=== PATIENT | female | born 1935 | race Caucasian/White ===

== ENCOUNTER 2016-07-25 16:00 | Inpatient (IN) | payer MEDICARE, BC ==
[~2016-07-25] VITALS: Ht 152.4 cm; Wt 69.6 kg
--- NOTE | ~2016-07-25 | ECHO ---
Transthoracic Echocardiography Report (TTE) Demographics Patient Name AGAPITO BRADFORD Date of Study 07/28/2016 Patient Number [id number] Visit Number [id number] Date of 1935 Room Number G6223 Gender Female Number Age 81 year(s) Referring Pablo Chavez Chemical Dependency Attendant Ramsey Adamson RD, Physician Ricardo Chanel RVT Physician Interpreting Alida Trujillo Candy Waffle Assembler Physician A Supervising Ordering Ricardo Chanel MD/MLP Physician Nurse Stress Clock Maker Conclusions Contractility Score Summary At rest the following contractility abnormalities were noted: Hypokinesis of the Mid anterior, the Mid infero-septal, the Mid inferior, the Mid infero-lateral, the Basal infero-lateral, the Apical inferior, the Apical lateral, the Apical anterior, the Basal anterior and the Apical cap segments; Akinesis of the Basal infero-septal and the Basal inferior segments; Dyskinesis of the Mid carmen-septal, the Apical septal and the Basal carmen-septal segments. Contractility of all other segments appeared normal. Summary The estimated left ventricular ejection fraction is 35-40%. Mild to moderate concentric left ventricular hypertrophy. Diastolic function indeterminate due to patient's arrhythmia. Mildly reduced right ventricular function. Mild to moderate mitral regurgitation by color Doppler. Mild mitral annular calcification. Mild tricuspid regurgitation by color Doppler. There is mild pulmonary hypertension. The pulmonary pressure (RVSP) is 35.88 mmHg. Procedure Type of Study TTE procedure:2D Echocardiogram. Procedure Date Date: 07/28/2016 Start: 09:39 AM Study Location: Inpatient Portable Technical Quality: Adequate visualization Indications:CVA. Appropriate Use Criteria: 9 Patient Status: Routine HR: 69 bpm BP: 165/89 mmHg M-Mode/2D Measurements LV Diastolic Dimension: 4.81 cm LV Systolic Dimension: 3.18 cm LV Septum Diastolic: 1.36 cm LV PW Diastolic: 1.18 cm AO Root Dimension: 3.6 cm Cardiac Output: 2.56 l/min AV Cusp Separation: 1.8 cm RV Diastolic Dimension: 3.49 cm LA volume: 95 ml LVOT: 1.9 cm RV Base: 3.62 cm LVOT VTI: 13.1 cm RV Mid: 2.38 cm LV Stroke volume: 37.12 ml TAPSE: 1.08 cm TDI-S': 9.87 cm/s Doppler Measurements AV Peak Velocity: 1.15 m/s MV Peak E-Wave: 1 m/s AV Peak Gradient: 5.29 mmHg AV Mean Gradient: 4 mmHg MV P1/2t: 67 msec LVOT Peak Velocity: 0.78 m/s TR Velocity:2.64 m/s PV Peak Velocity: 0.82 m/s TR Gradient:27.88 mmHg PV Peak Gradient: 2.69 mmHg Estimated RAP:8 mmHg Estimated PASP: 35.88 mmHg Estimated RVSP: 36 mmHg E' Septal Velocity: 0.05 m/s E' Lateral Velocity: 0.1 m/s Findings Left Ventricle Mild to moderate concentric left ventricular hypertrophy. Diastolic function indeterminate due to patient's arrhythmia. Right Ventricle Mildly reduced right ventricular function. Left Atrium The left atrium is severely dilated by LA volume index measurement. Right Atrium The right atrium is mildly dilated. IVC measures 2.04 cm with inspiratory collapse. Negative bubble study. Mitral Valve Mild to moderate mitral regurgitation by color Doppler. Mild mitral annular calcification. Aortic Valve The aortic valve is moderately sclerotic. Tricuspid Valve Mild tricuspid regurgitation by color Doppler. There is mild pulmonary hypertension. The pulmonary pressure (RVSP) is 35.88 mmHg. Pulmonic Valve Normal pulmonic valve structure and function. Pericardial Effusion No evidence of pericardial effusion. Miscellaneous The ascending aorta appears moderately dilated. The maximum diameter measures 3.8 cm. The aortic root appears mildly dilated. The maximum diameter measures 3.6 cm. Pleural Effusion No evidence of pleural effusion. Contractility Score LV regional wall motion:(0-Non visualized 1-Normal 2-Hypokinesis 3-Akinesis 4-Dyskinesis 5-Aneurysm) Signature dtt: Josselin Irwin dtd: 07/28/16 0939 Physician Self Edit
--- NOTE | ~2016-07-25 | HP ---
PATIENT'S NAME: AGAPITO BRADFORD [facility] AGE: 81 Y [address] ROOM: [place] [address] LOCATION: [facility] ADMIT DATE: 07/25/2016 History & Physical DISCHARGE DATE: FAMILY PHYSICIAN: Brayan Hernandez MD ATTENDING PHYSICIAN: Yanique SANDHU DATE OF SERVICE: CHIEF COMPLAINT: CVA. 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 The patient reports that around 11 a.m. this morning, she noticed her speech was slurred while talking over the phone. The patient was taken to the emergency department. Slurred speech improved, however, the patient was continued to have left facial droop. CT image was done, which showed some old strokes and possible new stroke. The patient was sent to our hospital for further workup. The patient reports that she has had multiple strokes in the past, and reports that the last one was found on eye examination. The patient currently denies chest pain, vision change, nausea, vomiting, gait instability, abdominal pain, fever, chills, headache, and extremity motor decrease. The patient lives by herself and is active with her activity of daily life. Daughter reports that the patient has mild of dementia, and most of her finances are run by her daughter. MEDICAL HISTORY: 1. GERD. 2. Hypertension. 3. Chronic atrial fibrillation. 4. Chronic back pain. 5. Diabetes mellitus type 2. 6. Hyperlipidemia. 7. Multiple CVA. SURGICAL HISTORY: 1. Kyphoplasty. 2. CABG. 3. Cataract. 4. Coronary angiogram. PATIENT'S NAME: AGAPITO BRADFORD [facility] AGE: 81 Y [address] ROOM: [place] [address] LOCATION: [facility] ADMIT DATE: 07/25/2016 History & Physical DISCHARGE DATE: FAMILY PHYSICIAN: Brayan Hernandez MD ATTENDING PHYSICIAN: Yanique SANDHU FAMILY HISTORY: Several of her brother had cardiac disease and have from cardiac disease complication. SOCIAL HISTORY: Distant smoking history. Last smoked 35 years ago. Denies drinking. Lives by herself with her cats. MEDICATIONS: Please see MAR. REVIEW OF SYSTEMS: All systems have been reviewed and are negative except for what is mentioned in the HPI. PHYSICAL EXAMINATION: VITAL SIGNS: Blood pressure of 179/109, temperature of 98.4, heart rate of 78, respiratory rate of 16. GENERAL APPEARANCE: The patient is alert and oriented x3, in no acute distress. HEAD: Normocephalic, atraumatic. EYES: Extraocular muscle intact. Sclerae nonicteric. NOSE: No nasal discharge. EARS: No ear discharge. NECK: Supple. No JVD. CHEST: Clear to auscultation. HEART: Irregularly irregular. ABDOMEN: Soft, nontender, and nondistended. Bowel sounds present. LOWER EXTREMITIES: No edema. SKIN: Warm to touch. MUSCULOSKELETAL: The patient exhibits scoliosis and some kyphosis in the back. BACK SHOE CUTTER: The patient is alert and oriented x3. Motor and sensory grossly intact. The patient exhibits mild left nasolabial flattening. LABORATORY DATA: Labs taken at [facility], this is today's labs. Hemoglobin of 12.5, hematocrit of 37.7, platelet of 269. White blood cell count of 8, sodium of 139, potassium of 4.2, creatinine of 1.1, glucose of 155, and BUN of 16. ASSESSMENT AND PLAN: The patient is an 81-year-old female with past medical history of multiple CVA, coronary artery disease, status post CABG, and diabetes mellitus, who presents here with CVA. PATIENT'S NAME: AGAPITO BRADFORD [facility] AGE: 81 Y [address] ROOM: [place] [address] LOCATION: [facility] ADMIT DATE: 07/25/2016 History & Physical DISCHARGE DATE: FAMILY PHYSICIAN: Brayan Hernandez MD ATTENDING PHYSICIAN: Yanique SANDHU 1. CVA: Initial NIH score of 2, currently NIH score of 1. The patient when seen at [facility] was not a candidate for tPA due to unknown time of presentation and current use of Pradaxa. CT head done at [facility] shows prior stroke and possible new stroke. We will acquire MRA of the head. 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 We will change medication simvastatin to high-dose Lipitor 80 mg. We will continue aspirin. We will hold Pradaxa due to fear of hemorrhagic conversion. We will allow permissive hypertension and put a p.r.n. of labetalol for systolic blood pressure greater than 220 and diastolic blood pressure greater than 110. Serial neuro check and PT and OT. 2. Diabetes mellitus, stable. Continue home medication. We will add low- dose SSI. 3. Coronary artery disease, status post CABG. Continue aspirin. We will change simvastatin to Lipitor, holding beta jen due to permissive hypertension. 4. Hyperlipidemia, on Lipitor. 5. Chronic atrial fibrillation. Holding Pradaxa for possible hemorrhagic conversion. 6. Gastroesophageal reflux disease, on Protonix. 7. Hypertension. Allowing permissive hypertension. See initial problem. 8. Diabetic neuropathy. Continue home medication. I have personally reviewed the patient's medical record including but not limited to blood work and radiology report. Total time spent with the patient is greater than 70 minutes, more than 50% time is spent in direct patient care and patient consultation. Case was reviewed with the patient, nursing staff, and Neurology. Neurology consulted on the case. On admission, the patient's code status is DNR/DNI. MD DAVID LOYOLA/modl /[id number]: [id number] T: [id number] HISTORY & PHYSICAL
--- NOTE | ~2016-07-25 | CON ---
PATIENT'S NAME: AGAPITO BRADFORD [facility] AGE: 81 Y [address] ROOM: [address] [address] LOCATION: [facility] ADMIT DATE: 07/25/2016 Consultation DISCHARGE DATE: FAMILY PHYSICIAN: Brayan Hernandez MD ATTENDING PHYSICIAN: Yanique SANDHU DATE OF CONSULTATION: 07/25/2016 The patient was seen on neurologic consultation at 7:00 p.m. on 07/25/2016. HISTORY OF PRESENT ILLNESS: This is an 81-year-old female, who has a history of chronic atrial fibrillation, on Pradaxa 150 mg tablet twice a day. She also has a history of coronary artery disease x2 procedures back in 1999 and in 2000 with revision. The patient states that she was in her usual state of health when she was talking to her daughter on the telephone and suddenly she was having difficulty getting the words out and her words were containing confused syntax. The daughter whom she was talking to called another daughter who lives locally in [place] and came over to see her mom immediately. However, she was sent by the patient's chairman and ceo to the emergency room where they evaluated the patient. By the time into the course of around 45 minutes to 1 hour, her slurred speech and word-finding difficulty had completely resolved. Her blood pressure at the hospital was noted to be somewhere in the range of over 200 systolic with the diastolic blood pressure around 110. She continues to maintain blood pressure readings into the 180 to 190 systolic range and diastolic range of around 102 to 109. The patient denies any headaches. She denies any focal weakness of her limbs or clumsiness of the limbs or any sensory deficits. She denies any numbness of the face or of the extremities. She says that she is back to her baseline and there is no apparent confusion presently and there is no slurring of the speech and no facial droop was ever noted. PRIOR MEDICAL HISTORY: She has a history of coronary artery disease and also history of diabetes. CURRENT MEDICATIONS: At home include: 1. Coreg 12.5 mg tablet 1 tablet 2 times a day. 2. Lantus subcutaneous 100 units, inject 35 units subcu at bedtime. 3. Digoxin 125 mcg 1 tablet daily. 4. Singulair 10 mg tablets once daily. 5. Zocor 20 mg tablets daily. 6. Omeprazole 20 mg p.o. daily. 7. Pradaxa 150 mg tablet 2 times a day. 8. Hydralazine 25 mg tablet 1 tablet 2 times daily. PATIENT'S NAME: AGAPITO BRADFORD [facility] AGE: 81 Y [address] ROOM: [address] [place], [place] [address] LOCATION: [facility] ADMIT DATE: 07/25/2016 Consultation DISCHARGE DATE: FAMILY PHYSICIAN: Brayan Hernandez MD ATTENDING PHYSICIAN: Yanique SANDHU 9. Metformin 500 mg 2 tablets 2 times daily. 10. Fenofibrate 160 mg tablet 1 tablet daily. 11. Vitamin D 1000 units 1 tablet daily. 12. Spiriva HandiHaler inhalation 18 mcg 1 cap per inhaler every morning as a bronchodilator. 13. Centrum tablet 1 tablet daily. 14. Lisinopril 20 mg tablet daily. 15. Aspirin 81 mg daily. 16. Melatonin 3 mg tablet daily. FAMILY HISTORY: Noncontributory. There is no known history of a stroke in the family members. Her mother lived to 83 years old. Father lived to 76 years old. She has numerous siblings who lived into their 90s. SOCIAL HISTORY: She smoked briefly as a teenager. She has been for 7 years. She lives by herself. She does have 3 daughters and 1 son, 1 daughter is present today. She lives locally in [place]. PAST SURGICAL HISTORY: Included coronary artery bypass grafts done in 2000 and 2001. Current machine whitener follows her closely is Dr. Ayers, [facility] in [place]. REVIEW OF SYSTEMS: NEUROLOGICAL: The patient presented this sql server dba developer with about 45 minutes of slurring of the speech with word-finding. It resolves spontaneously. In the emergency room, she presented with diastolic hypertension as well as systolic hypertension into the low 200s. She was not confused. She did not have a facial droop or facial numbness or any weakness of the upper and lower extremities. There may have been a prior history of stroke though that is unclear. At this point, she has chronic atrial fibrillation, on Pradaxa which she takes on a daily basis. ENDOCRINE: History of diabetes and cardiac history of known chronic atrial fibrillation and coronary artery disease. She is maintained on a hyperlipidemic medication. The rest of a 10-point review of systems is within normal limits. PHYSICAL EXAMINATION: GENERAL: The patient is alert and oriented and has excellent mentation. She speaks clearly. She does not have any word substitution and no syntax errors were heard. She was able to name objects and parts of objects and perform whole body cross commands. VITAL SIGNS: Revealed a pulse of 82 and irregular, respiration rate 12, blood pressure 179/102, temperature 98.4, pulse was 78 and temperature 98.7, her PATIENT'S NAME: AGAPITO BRADFORD [facility] AGE: 81 Y [address] ROOM: [address] [place], [place] [address] LOCATION: [facility] ADMIT DATE: 07/25/2016 Consultation DISCHARGE DATE: FAMILY PHYSICIAN: Brayan Hernandez MD ATTENDING PHYSICIAN: Yanique SANDHU weight is 72 kg. NEUROLOGIC: Cranial nerves 2 through 12 was intact. I did not appreciate any facial droop. There is normal facial symmetry. NECK: Supple on flexion and extension. On checking a pronator drift, perhaps a slight pronator drift that is chronic according to the daughter. The pronator drift is subtle in the right upper extremity. I did not appreciate any drift in her right lower extremity. She has full power in the proximal and distal muscles of the upper and lower extremities with normal hand security compliance specialist. Reflexes symmetric at +1 in the biceps, triceps, brachioradialis, patellar reflexes and ankle jerk reflexes. Sensory exam is completely intact. There is no evidence of sensory neglect, 2-point discrimination is normal and right left discrimination is normal. IMPRESSION: The patient did have what appears to be a small TIA. Based upon her symptoms that lasted no more than 45 minutes, it was associated with word finding deficits and slurring of speech. The patient has been religiously taking her Pradaxa which should be successful in preventing any type of cardioembolic stroke to the left brain. We should get an MRI to confirm any evidence of DWI findings of a stroke. Even though these symptoms were fleeting if there is evidence for a stroke on the MRI, we would have to discuss with her machine whitener about an alternate anticoagulant. The patient had been on Coumadin in the distant past, but eventually went on to Pradaxa. She believes that she has been on this medication for about 2 years. There is a question as to whether she had a stroke affecting her visual field in the distant past while on this medication as well. Now it is appropriate to probably hold the Pradaxa briefly based upon the thought that she may have had a small stroke. However, we will likely reinstitute the medication. Physical exam reveals no neurologic evidence of a focal stroke thankfully due to the possibility that she may have had an acute increase in her blood pressure which may of course is confusion event. The MRI is certainly important to rule out evidence for a stroke. Her hypertension presently may be reactive hypertension to the events associated with the TIA. If the patient continues to remain stable without any signs and symptoms of a stroke, we will slowly reduce her blood pressure accordingly, however, I would recommend keeping her blood pressure just acutely elevated over the course of the evening. Continue to follow along with the Hospitalist Service on Ms. Bradford's neurologic status. MD JAYDA WASHINGTON/nahum PATIENT'S NAME: AGAPITO BRADFORD [facility] AGE: 81 Y [address] ROOM: [place] [address] LOCATION: [facility] ADMIT DATE: 07/25/2016 Consultation DISCHARGE DATE: FAMILY PHYSICIAN: Brayan Hernandez MD ATTENDING PHYSICIAN: Yanique SANDHU /[id number] d: 07/26/1647 t: 07/30/[id number], CONSULTATION REPORT
--- NOTE | ~2016-07-25 | DS ---
PATIENT'S NAME: AGAPITO BRADFORD [facility] AGE: 81 Y [address] ROOM: [address] [address] LOCATION: [facility] ADMIT DATE: 07/25/2016 Discharge Summary DISCHARGE DATE: 07/29/2016 FAMILY PHYSICIAN: Brayan Shah MD ATTENDING PHYSICIAN: Yanique SILVA FINAL DIAGNOSES: 1. Transient ischemic attack. 2. Encephalopathy. 3. Aphasia. 4. Diabetes mellitus. 5. Accelerated hypertension. 6. Gait instability. CONSULTANTS ON THE CASE: Dr. Ng, Neurology. HOSPITAL COURSE: Please see details of admission in H and P by Dr. Silva. Briefly, the patient is a pleasant 81-year-old female, who presented with acute onset of encephalopathy and aphasia. The patient was initially evaluated in [place] and sent here for further evaluation. At the time of her presentation in [place], her symptoms had resolved. CT scan done in [place] did show history of previous CVA, but no new abnormalities. The patient was sent here for further evaluation. MRI and MRA of the head and neck were ordered upon admission. Dr. Ng was consulted for neurologic evaluation. Transthoracic echo was also ordered. The patient was covered with sliding scale insulin throughout her stay with Accu-Cheks 4 times daily. Once the patient's swallow was evaluated, she was cleared to continue with her home medications as outlined. The patient's Pradaxa was held on admission, and after further evaluation, we were able to restart her Pradaxa as well as Coreg and lisinopril for antihypertensive coverage. Dr. Ng evaluated the patient on the , felt like her symptoms and history and diagnostic studies were consistent with a TIA secondary to uncontrolled blood pressure. The patient continued to have elevated pressures and hydralazine was increased to 25 mg 3 times daily. On the 1st, the patient describes some lightheadedness with change in activity as well as her elevated blood pressures. It was determined that the patient should stay another evening for further optimization. On the 2nd, the patient was feeling better. Overall, her blood pressures had dropped to an average of 140 systolically. She was ambulating in halls with a walker with adequate evaluation by PT and OT for home discharge. We did attempt for a swing bed placement, however, it was deemed that the patient would not qualify at this time. The patient and her family discussed options and felt like home with home health would be adequate. DIAGNOSTICS: Radiology exams include MRI of the brain without contrast, which was normal on 07/25/2016; MRI of the neck shows bilateral carotid stenosis in PATIENT'S NAME: AGAPITO BRADFORD [facility] AGE: 81 Y [address] ROOM: [place] [address] LOCATION: [facility] ADMIT DATE: 07/25/2016 Discharge Summary DISCHARGE DATE: 07/29/2016 FAMILY PHYSICIAN: Brayan Shah MD ATTENDING PHYSICIAN: Yanique SILVA the 16% to 49% category with some slight irregularity on the right. She had normal distal internal carotids and normal vertebral basilar system. MRI of the brain on 07/25/2016 shows wyblyehd-rf-hftsrw senescent changes with an old left occipital infarct. No acute findings and no ischemia. The patient underwent bilateral renal artery ultrasound on 07/27/2016 for elevated blood pressures and no evidence of significant renal artery stenosis was identified. She did have large cyst noted at the left kidney up to 5.9 cm. Blood sugars ranged from 109 to 327 during her stay. On admission, sodium was 140, potassium 4.1, chloride 107, bicarb 27, glucose 142, BUN 15, creatinine 1.0. Prior to discharge, sodium 141, potassium 3.8, chloride 106, bicarb 29, glucose 163, BUN 16, creatinine 1.0. Total cholesterol was 109, triglycerides 122, HDL 44, LDL 41. Hemoglobin A1C was 7.9%. On the 30, white blood cell count was 11.9, hemoglobin 12.6, hematocrit 39.3, platelets 274. Echocardiogram on 07/28/2016 shows EF of 35% to 40%. Ojkn-fn-rpmjyaln left ventricular hypertrophy, mildly reduced right ventricular function, mild-to- moderate mitral regurg, mild mitral annular calcification, mild tricuspid regurg, and mild pulmonary hypertension with a pressure of 35.88 mmHg. DISCHARGE INSTRUCTIONS: The patient is discharged home with resuming home health for residential, PT, and OT. The patient's diet is diabetic. Activity: No driving. FOLLOWUP: She will follow up with Dr. Shah on 08/04/2016 at 2:15 p.m. Follow up with Dr. Ayers or Dr. Lawrence at [facility] on 07/31/2016 at 10:15 a.m. DISCHARGE MEDICATIONS: 1. Aspirin 81 mg daily. 2. Simvastatin 20 mg daily. 3. TriCor 160 mg daily. 4. Coreg 12.5 mg twice daily. 5. Vitamin D3 1000 units daily. 6. Digoxin 125 mcg daily. 7. Colace 100 mg twice daily. 8. Hydralazine 25 mg 3 times daily. Hold if systolic blood pressure is less than 110. 9. Lantus 35 mg daily. 10. Lisinopril 20 mg daily. 11. Omeprazole 20 mg daily. 12. Tylenol 650 mg every 4 hours as needed. 13. Cinnamon 500 mg daily. 14. Melatonin 30 mg daily. 15. Multivitamin 1 tablet daily. 16. Ativan 0.5 mg 4 times daily as needed. 17. Metformin 1000 mg twice daily. PATIENT'S NAME: AGAPITO BRADFORD [facility] AGE: 81 Y [address] ROOM: [place] [address] LOCATION: [facility] ADMIT DATE: 07/25/2016 Discharge Summary DISCHARGE DATE: 07/29/2016 FAMILY PHYSICIAN: Brayan Shah MD ATTENDING PHYSICIAN: Yanique SILVA 18. Pradaxa 150 mg twice daily. We do appreciate participating in this patient's care and thank you very much for the ability to serve her while hospitalized at [facility]. Time spent coordinating details of discharge was 35 minutes, which was spent coordinating with consulting physician and Care Management, completion of medication reconciliation, and education to the patient and family on the above-mentioned diagnoses. ASYA QUIROZ FOR TANIA BOCANEGRA MD CHERYL/modl /[id number] d: 07/30/16220 t: 08/01/161930, DISCHARGE SUMMARY
[2016-07-25] MEDS ORDERED: PRILOSEC20 MG PO (18:04)
[2016-07-25] MEDS ORDERED: LANTUS SOL100 UNIT/1 SUB-Q (18:05)
[2016-07-25] MEDS ORDERED: CINNAMON500 MG (18:05)
[2016-07-25] MEDS ORDERED: COLACE100 MG PO (18:06)
[2016-07-25] MEDS ORDERED: MELATONIN3 MG PO (18:06)
[2016-07-25] MEDS ORDERED: ASPIRIN LO-DOSE81 MG PO (18:07)
[2016-07-25] MEDS ORDERED: THERAGRAN-M1 TAB PO (18:07)
[2016-07-25] MEDS ORDERED: VITAMIN D1000 UNIT PO (18:07)
[2016-07-25] MEDS ORDERED: COREG12.5 MG PO (18:08)
[2016-07-25] MEDS ORDERED: TYLENOL325 MG PO (18:08)
[2016-07-25] MEDS ORDERED: PRINIVIL (ZESTR20 MG PO (18:09)
[2016-07-25] MEDS ORDERED: LANOXIN (DIGI125 MCG PO (18:09)
--- NOTE | 2016-07-25 18:09 | NUR ---
Patient is very pleasant 81 yo female admitted this evening for possible stroke. patient lives in [place], doctors in [place]. patient was talking with her daughter on the phone this morning and her speech was slurred. pt called the hairdresser to cancel her appointment and she came to take patient to the ER in [place]. patient is then transferred here. patient has saline lock in right hand without erythema noted at site. Education is given as documented. patient and daugther deny questions. pneumatics are on bilat calves. pt rubia well. call light is within reach patient denies needs at htis time. Report is given to LEONILA Ortiz.
[2016-07-25] MEDS ORDERED: ZOCOR20 MG PO (18:10)
[2016-07-25] MEDS ORDERED: ATIVAN 0.5MG0.5 MG PO (18:10)
[2016-07-25] MEDS ORDERED: PRADAXA150 MG PO (18:11)
[2016-07-25] MEDS ORDERED: GLUCOPHAGE500 MG PO (18:11)
[2016-07-25] MEDS ORDERED: TRICOR 160 MG160 MG PO (18:11)
[2016-07-25] MEDS ORDERED: APRESOLINE25 MG PO (18:12)
--- NOTE | 2016-07-25 18:37 | NUR ---
Significant Event: Patient admitted to [facility] at 1720. a/o x 3. denies pain. does state has chronic pain to bilateral lower extremities with palpatation due to hx of vein stripping from CABG 20 years ago. also chronic numbness to feet from diabetic neuropathy. NIHSS=1 for left mouth droop. lung sounds clear. bowel sounds active. no skin integrity impairment. accucheck 113. chronic afib. IV to left hand saline locked. Dr. Silva admitting. voided 100 of urine per bedpan on admission.
--- NOTE | 2016-07-26 04:12 | NUR ---
Significant Event: Patient alert and oriented x3. Up with one assist and gaitbelt. NIHSS 1. PERRLA. Equal strength bilaterally. Chronic a.fib with rates 70s-90s. SBPs ranging from 133-179 with DBPs 78-110. On room air. Tylenol given for chronic back pain with relief. Right wrist IV saline locked. MRI done of head and neck last night and up to see patient. Pleasant and cooperative with cares Follow up:
--- NOTE | 2016-07-26 10:00 | NUR ---
CONSULT RECEIVED PER STROKE PROTOCOL. WILL PROVIDE DIET ED PRIOR TO DC APPROPRIATE.
--- NOTE | 2016-07-26 15:21 | NUR ---
Significant Event: Patient alert and oriented x3. Pupils 3mm, brisk. Reports chronic neuropathy to feet. NIHSS= 1, L) facial droop present. Tele on- a fib with BBB. Hypertensive, all other VSS on room air. Voids per bathroom. BM today. Reports of chronic back pain, tylenol given. No changes in patient condition throughout shift. IV to R) wrist, saline locked. Follow up: VS/neuros q 4 hours. Up with 1PA. ADA diet, AC/HS accucheks.
[2016-07-27 04:40] LABS: BASOPHIL # 0.1 K/uL (0.0-0.2); BASOPHIL % 0.8 %; EOSINOPHIL # 0.5 K/uL (0.0-0.5); EOSINOPHIL % 3.8 %; HEMATOCRIT 39.3 % (30.0-46.0); HEMOGLOBIN 12.6 g/dL (10.0-15.0); IMMATURE GRANULOCYTE % 0.3 %; LYMPHOCYTE % 16.9 %; MCH 27.6 pg (27.0-34.0); MCHC 32.1 gm/dL (32.0-36.5); MONOCYTE # 1.2 K/uL (0.0-1.0); MPV 9.6 fl (9.4-12.4); NEUTROPHIL # (ANC) 8.1 K/uL (1.8-7.8); NEUTROPHIL % 68.2 %; NRBC % 0 /100WBC (0-0.00); PLATELET COUNT 274 K/uL (150-450); RBC 4.57 M/uL (3.00-5.00); RDW-CV 16.4 % (11.9-14.6); WBC 11.9 K/uL (4.0-11.0)
--- NOTE | 2016-07-27 05:04 | NUR ---
A&O. PERRLA. Left facial droop. Afib. Chronic neuopathy to feet. IV right wrist SL. 1 assist with gait belt and walker. Voids frequently. Accuchecks ACHS. ADA diet. Hopes to discharge today.
[2016-07-27 05:50] LABS: ANION GAP 10.1 (10.0-19.0); CALCIUM 8.9 mg/dL (8.5-10.5); POTASSIUM 4.1 mMol/L (3.7-5.1)
--- NOTE | 2016-07-27 14:56 | NUR ---
Significant Event: Patient alert and oriented x3. Very talkative. Pupils 3mm, brisk. Grasps moderate and equal bilaterally. Chronic neuropathy to feet. NIHSS= 0. Tele on- a fib. Very hypertensive, MD aware. Working on blood pressure control. Other VSS on room air. Voids per bathroom, urinary urgency noted. IV to R) wrist, saline locked. Tylenol given for chronic back pain. Follow up: VS/neuros q 4 hours. Up with 1PA and walker. ADA diet, AC/HS accucheks.
--- NOTE | 2016-07-28 04:17 | NUR ---
Significant Event: PATIENT IS ALERT AND ORIENTEDX3. PLEASANT. NIHSS 0. PATIENT GETS UP WITH SBA WITH WALKER TO BATHROOM MULTIPLE TIMES THROUGHOUT NIGHT. DENIES PAIN. ACHS. HYPERTENSIVE. LAST BP WAS 172/77. NEW MEDICATIONS STARTED YESTERDAY. SHE IS NERVOUS ABOUT GOING HOME BUT USES MEALS ON WHEELS AND HOME HEALTH. REPORTS NUMBNESS TO BILATERAL FEET WHICH IS CHRONIC FOR HER. A.FIB ON THE MONITOR. ROOM AIR. Follow up: PLAN TO DISCHARGE HOME TODAY.
[2016-07-28 05:56] LABS: ANION GAP 9.8 (10.0-19.0); CALCIUM 8.4 mg/dL (8.5-10.5); POTASSIUM 3.8 mMol/L (3.7-5.1)
--- NOTE | 2016-07-28 12:51 | NUR ---
Introduced self and role of care management to patient and daughter. She lives by herself in [place]. Licha states that she is able to do all her own ADL's. She does use a cane and walker at home. She has a lady that comes in to clean every week. She has been on service with [facility] thru [facility]. She just finished the PT/OT services last week. Her daughter would like the nursing services to continue. I called and updated Lissett at [facility] and faxed clinical inforamtion. Will fax discharge orders when patient ready for discharge. Patient and daughter deny any needs at this time. Swetha continue to follow.
--- NOTE | 2016-07-28 16:52 | NUR ---
Significant Event: Alert & oriented. VSS, afebrile, room air. Orthostatics positive, SBP 130-160. SBA. IV to L)fa SL. NIHSS=0. Chronic neuropathy to bilat feet. Pleasant & cooperative with cares. Uses call light appropriately. Follow up: Dischage Thursday if BP better controlled, home with home health
--- NOTE | 2016-07-29 04:17 | NUR ---
Significant Event: A&Ox3, VSS on room air. HTN, SBP: 129-155. Transfers with SBA with walker/GB to bathroom. Voids frequently, continent of bowel and bladder. Patient requested ativan given at 2250, Tylenol given X2 last at 0030 for back pain. NIHSS=0. Talkitive, pleasant, and cooperative with cares. Follow up: possible swing bed soon.
--- NOTE | 2016-07-29 12:57 | NUR ---
Called and spoke with Jaja swingbed coordinator at [facility]. We discussed patient coming for a Medicare skilled stay. I read her what were documented on the the therapy notes that patient is able to ambulate greater that 300 ft. She is not on any IV antibiotics, no complex dressing changes. Jaja feels that at this time there are no skillable qualifiers. I did update Dr Garcia and [facility]. I also updated patient and called and spoke with her daughter Nargis. I explained that we would continue the [facility] with nursing and add back in the therapies. Patient and daughter are in agreement with this plan. Will continue to follow.
== END 2016-07-29 16:33 | disposition home health service (06) | DRG 69 ==
LOC: GNTU 17:06
PROVIDERS: Internal Medicine; ADMIT Internal Medicine
DX: G45.9 Transient cerebral ischemic attack, unspecified (principal); G93.40 Encephalopathy, unspecified; I27.2 Other secondary pulmonary hypertension; E11.40 Type 2 diabetes mellitus with diabetic neuropathy, unspecified; I48.2 Chronic atrial fibrillation; I11.9 Hypertensive heart disease without heart failure; F03.90 Unspecified dementia, unspecified severity, without behavioral disturbance, psychotic disturbance, mood disturbance, and anxiety; R47.01 Aphasia; N28.1 Cyst of kidney, acquired; R26.89 Other abnormalities of gait and mobility; I34.0 Nonrheumatic mitral (valve) insufficiency; I25.10 Atherosclerotic heart disease of native coronary artery without angina pectoris; I16.0 Hypertensive urgency; E78.5 Hyperlipidemia, unspecified; K21.9 Gastro-esophageal reflux disease without esophagitis; M54.9 Dorsalgia, unspecified; Z66 Do not resuscitate; Z86.73 Personal history of transient ischemic attack (TIA), and cerebral infarction without residual deficits; Z95.1 Presence of aortocoronary bypass graft; Z79.01 Long term (current) use of anticoagulants; Z79.4 Long term (current) use of insulin; Z79.84 Long term (current) use of oral hypoglycemic drugs; Z79.899 Other long term (current) drug therapy
CPT/HCPCS: A9577; J2060

== ENCOUNTER 2016-09-01 17:00 | Observation (INO) | payer MEDICARE, BC ==
[~2016-09-01] VITALS: Ht 152.4 cm; Wt 68.7 kg
--- NOTE | ~2016-09-01 | HP ---
PATIENT'S NAME: AGAPITO BRADFORD [facility] AGE: 81 Y [address] ROOM: [place] [address] LOCATION: [facility] ADMIT DATE: 09/01/2016 History & Physical DISCHARGE DATE: FAMILY PHYSICIAN: PHYSICIAN, UNKNOWN ATTENDING PHYSICIAN: CHANCE CHOE DATE OF SERVICE: CHIEF COMPLAINT: Slurred speech. HISTORY OF PRESENT ILLNESS: This is an 81-year-old female who says that around noon time today after she had lunch she was waiting for the home health nurse to visit her to take her blood pressure. The patient lives alone. When the home health nurse arrived around 2 p.m., the patient starts started having slurred speech and left-sided facial droop. This happened around 2 p.m. Right away, the nurse took the patient to [facility] for evaluation. Over there, around 4 p.m., the patient stated that her slurred speech and left-sided facial droop had resolved. Over there, in [place], the patient had a CT of the brain without contrast, which showed no evidence of acute intracranial hemorrhage or mass effect. Also had EKG which showed chronic atrial fibrillation, not RVR. The patient already has a history of chronic atrial fibrillation in the past. The patient was later transferred here for further care from [place]. Other than that, the patient denies any other symptoms. Currently, the patient is back to her normal baseline and does not have any complaints. There is no more slurred speech. There is no more left-side facial droop. The patient has had TIA secondary to uncontrolled hypertension from the last admission based on the discharge summary that was in July 2016 and also had a prior history of left occipital stroke in the past with residual right-side visual field vision loss which is chronic. REVIEW OF SYSTEMS: As mentioned in the history of present illness. All other system were reviewed and they were negative except what is mentioned in the history of present illness. PAST MEDICAL HISTORY: 1. Diabetes type 2. 2. Hypertension. 3. TIA in the past. 4. 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 5. Gastroesophageal reflux disease. 6. Hyperlipidemia. PATIENT'S NAME: AGAPITO BRADFORD [facility] AGE: 81 Y [address] ROOM: [id number] [place], [place] [address] LOCATION: [facility] ADMIT DATE: 09/01/2016 History & Physical DISCHARGE DATE: FAMILY PHYSICIAN: PHYSICIAN, UNKNOWN ATTENDING PHYSICIAN: CHANCE CHOE 7. Chronic atrial fibrillation, on rate control and also on long-term anticoagulation. 8. Last transthoracic echo on 07/28/2016 showed left ventricular ejection fraction of 35% to 40% with tpmo-dk-sapnjuyo concentric left ventricular hypertrophy and imqy-kj-jefnbszl mitral regurgitation and mild tricuspid regurgitation with mild pulmonary hypertension of the pulmonary pressure of 35 mmHg. ALLERGIES: CODEINE WHICH CAUSES HER TO FEEL SICK IN GENERAL. HOME MEDICATIONS: Currently is being reconciled. SOCIAL HISTORY: The patient was a former cigarette smoker about 1 pack per day for 20 years, but she quit 30 years ago. She denies any alcohol or any illegal drug use. PAST SURGICAL HISTORY: 1. Status post CABG back in 1999 and 2000. 2. Status post lumbar kyphoplasty 4 times in the past. FAMILY HISTORY: Father from myocardial infarction at his 80s and mother had diabetes type 2. PHYSICAL EXAMINATION: VITAL SIGNS: At the time of my dictation, temperature 98.2, heart rate 76, respirations 16, blood pressure 176/92, saturation 94% on room air. GENERAL APPEARANCE: Alert and oriented x3, in no acute distress. HEENT: Pupils equally round and reactive to light. Extraocular muscles intact. Anicteric sclerae. Nasal turbinates are normal bilaterally. Moist oral mucosa. NECK: No JVD. CARDIOVASCULAR: Irregularly irregular rate and rhythm. No murmur, no rubs, no gallops. RESPIRATORY: Clear to auscultation. No rales. No rhonchi. No wheezing. No crackles. ABDOMEN: Soft, nontender, nondistended, normal bowel sounds. No hepatomegaly. Bowel sounds are present. No mass. EXTREMITIES: No edema in upper or lower extremities. SKIN: No ulcer, no rash, no cyanosis. NEUROLOGIC: Cranial nerves 2 through 12 remarkable for right-side visual field loss on the right eye which is chronic from prior left occipital stroke in the past. Otherwise, unremarkable. No slurred speech. No facial droop. PATIENT'S NAME: AGAPITO BRADFORD [facility] AGE: 81 Y [address] ROOM: [id number] [place], [place] [address] LOCATION: [facility] ADMIT DATE: 09/01/2016 History & Physical DISCHARGE DATE: FAMILY PHYSICIAN: PHYSICIAN, UNKNOWN ATTENDING PHYSICIAN: CHANCE CHOE Pronator drift negative. Sensation and muscle strength intact. Babinski negative. Deep tendon reflex +2 at both knees and both biceps area. Proprioception and vibration intact. Gait not assessed due to fall risk. Jawgap-fw-shnf intact. Yzoe-yv-ngpl intact. MUSCULOSKELETAL: No joint pain. No muscle pain. Range of motion intact. LABORATORY DATA: None currently. IMAGING STUDIES: EKG on admission here in our facility on 09/01/2016 at 2110 hours showed atrial fibrillation with a heart rate of 75, QRS of 153 with evidence of left bundle-branch block. This is chronic compared to the prior EKG performed from the outside facility today in [place]. CT of the head without contrast performed from the outside facility in [place] on 09/01/2016 showed no evidence of acute intracranial hemorrhage or mass effect. Essentially stable head CT from comparison on 07/25/2106. This is a report performed from the outside facility in [place]. ASSESSMENT AND PLAN: 1. Regarding her transient slurred speech secondary to transient ischemic attack: Currently, the most likely diagnosis is transient ischemic attack given the patient's symptoms of left-side facial droop and transient slurred speech which already resolved within 2 hours of the symptom onset. I will treat her with stroke protocol. I will consult Neurology in the morning. The patient already passed the bedside dysphagia screen. She can have a dysphagia diet for now and have the speech and swallow evaluation in the morning. PT and OT. I am not going to repeat echo because the patient just had one in July 2016. I will repeat MRI of the brain and MRA of the brain and neck to see if there is any new evidence of ischemia or stroke. I will try to keep the blood pressure on the higher end now given that the patient just had resolution of her TIA symptoms. Tomorrow after 24 hours, blood pressure can be controlled more aggressively. Further plan depends on clinical course. The patient already got aspirin at home. I will continue aspirin 81 mg daily and also I will defer to Neurology to see if they want to switch her to Plavix or add dipyridamole. I will switch her simvastatin to atorvastatin 40 mg p.o. daily. I am not going to check A1c or lipid panel because she already had one done earlier this year within the last 3 months. Further plan will depend on clinical course. Continue telemetry monitoring. 2. Regarding her diabetes type 2: Subcu aspart, low dose a.c. and h.s. Her fingerstick glucose is 123 at the moment. Continue dysphagia diet. If she passes tomorrow, she can go on with the diabetic diet tomorrow. PATIENT'S NAME: AGAPITO BRADFORD [facility] AGE: 81 Y [address] ROOM: [address] [address] LOCATION: [facility] ADMIT DATE: 09/01/2016 History & Physical DISCHARGE DATE: FAMILY PHYSICIAN: PHYSICIAN, UNKNOWN ATTENDING PHYSICIAN: CHANCE CHOE Further plan depends on clinical course. 3. Regarding her hypertension: As mentioned before, I will try to keep the blood pressure on the higher end in the first 24 hours after the resolution of her TIA symptoms. Tomorrow, we can resume her home medication if needed to control her blood pressure more aggressively. 4. Regarding her chronic atrial fibrillation: Hold blood pressure medications for now as mentioned before. Currently, her heart rate is in the 70s. Continue her Pradaxa. 5. Regarding her gastroesophageal reflux disease: Continue home proton pump inhibitor. 6. Regarding her hyperlipidemia: I will switch her simvastatin to atorvastatin as mentioned before. 7. In addition, I will check her digoxin level to make sure it is not in the toxic level which could cause some of the neurological symptoms. 8. Regarding her deep venous thrombosis prophylaxis: She is already on Pradaxa. Time spent in care on the day of admission, the total time spent was 50 minutes. More than half of the total time spent was in counseling and addressing all the questions and concerns that the patient and the patient's daughter had at the bedside. The remaining of the total time was spent on chart review and interview and examination and going over the plan of care in detail with the patient and the patient's daughter at the bedside. I answered all of their questions to their satisfaction. I also went over the plan of care with the nurse in person. JOHN MARIO MD CC/modl /[id number] D: [id number] T: [id number] HISTORY & PHYSICAL
--- NOTE | ~2016-09-01 | CON ---
PATIENT'S NAME: AGAPITO BRADFORD [facility] AGE: 81 Y [address] ROOM: [address] [place], [place] [id number] LOCATION: [facility] ADMIT DATE: 09/01/2016 Consultation DISCHARGE DATE: FAMILY PHYSICIAN: Brayan Shah MD ATTENDING PHYSICIAN: CHANCE CHOE REFERRING PHYSICIAN: ROSA MARIA DIAZ MD A consult for Dr. Rivera, hospitalist. HISTORY OF PRESENT ILLNESS: This pleasant, 81-year-old lady, right-handed, who lives alone, was admitted on 09/01/2016 with left-sided facial droop and some slurring of speech of sudden onset. Tells me that she was taken to emergency room at [place], and her symptoms by then resolved almost completely. She had a CT scan done there which showed no gross abnormality. No mass effect. No hemorrhage. EKG showed chronic atrial fibrillation. She has been followed on that for quite some time. She is at basic level of her activity at the present time. PAST MEDICAL HISTORY: 1. Diabetes, type 2. 2. Hypertension. 3. History of TIA in the past. 4. History of left occipital stroke in the past. Mild right-sided weakness, resolved, but has still mild right-sided visual cut/neglect. 5. Reflux gastric disease. 6. Dyslipidemia. 7. Chronic atrial fibrillation and on long-term anticoagulant. ALLERGIES: SHE IS ALLERGIC TO CODEINE. SOCIAL HISTORY: The patient is a former smoker for about 20 years, and she has given up smoking for the last 30 years. She does not abuse any alcohol now. PAST SURGICAL HISTORY: She gives also history of kyphoplasty surgery 4 times in the past, and also she had a . PHYSICAL EXAMINATION: PATIENT'S NAME: AGAPITO BRADFORD [facility] AGE: 81 Y [address] ROOM: [id number] [place] [id number] LOCATION: [facility] ADMIT DATE: 09/01/2016 Consultation DISCHARGE DATE: FAMILY PHYSICIAN: Brayan Shah MD ATTENDING PHYSICIAN: CHANCE CHOE She is alert and oriented x3. Can comprehend and express without difficulty. Voice is clear and not wet. She is, at the present time, able to follow instructions without difficulty. Cranial nerves 2 through 12 are within normal limits. Neurologically, she is intact. Deep tendons are present and equal throughout, 1+. She is okay with bowel and bladder control. MEDICATIONS: She is on the following medications: 1. Digoxin. 2. Hydralazine. 3. TriCor. 4. Protonix. 5. Glucagon. 6. Dextrose. 7. Glucose. 8. Insulin aspartate, mild scale. 9. NaCl 0.9%. 10. Ativan. 11. Tylenol. 12. Colace. 13. Pradaxa. ASSESSMENT AND PLAN: She could ambulate 250 without much difficulty x2 with front-wheeled walker and standby assistance. I feel this lady can go on outpatient basis and follow with her family physician. I would like to follow her on outpatient basis in about 1 week post discharge. Please see the orders. I have strongly advised her to follow with her family physician and also not to drive and/or operate any mechanical device until she is reevaluated. I will be following alongside with you while she is here. All the above was explained to her in detail. She verbalized understanding and agreement. Thank you for this referral. LUZ PIERCE MD PAT[facility]GE[facility] 81 Y [address] ROOM: [place] [address] LOCATION: [facility] ADMIT DATE: 09/01/2016 Consultation DISCHARGE DATE: FAMILY PHYSICIAN: Brayan Shah MD ATTENDING PHYSICIAN: CHANCE CHOE/nahum /[id number] d: 09/02/160 t: 09/05/16812, CONSULTATION REPORT
[~2016-09-01 17:00] MED LIST: APRESOLINE25 MG PO; ASPIRIN LO-DOSE81 MG PO; ATIVAN 0.5MG0.5 MG PO; CINNAMON500 MG; COLACE100 MG PO; COREG12.5 MG PO; GLUCOPHAGE500 MG PO; LANOXIN (DIGI125 MCG PO; LANTUS SOL100 UNIT/1 SUB-Q; MELATONIN3 MG PO; PRADAXA150 MG PO; PRILOSEC20 MG PO; PRINIVIL (ZESTR20 MG PO; THERAGRAN-M1 TAB PO; TRICOR 160 MG160 MG PO; TYLENOL325 MG PO; VITAMIN D1000 UNIT PO; ZOCOR20 MG PO
[2016-09-01] MEDS ORDERED: PROLIA60 MG/ML SUB-Q (18:17)
--- NOTE | 2016-09-01 20:12 | NUR ---
PATIENT IS 81 YO FEMALE ADMITTED THIS EVENING WITH POSSIBLE CVA VS TIA. STATES SHE WAS IN THE HOSPITAL 07/29/16 FOR 5 DAYS WITH SAME SYMPTOMS. HAD TROUBLE WITH HER B/P BEING TOO HIGH, MEDS ADJUSTED BUT HER B/P STILL SEEMS TO BE RUNNING HIGH HER DAUGHTER STATES. PATIENT IS VERY PLEASANT, LIVES BY HERSELF IN [place] WITH HER CATS. PATIENT WAS TAKEN TO [facility] VIA AMBULANCE AND IS TRANSFERRED HERE. SALINE LOCK IS NOTED IN LEFT HAND WITHOUT ERYTHEMA OR EDEMA NOTED AT SITE. EDUCATION IS GIVEN DOCUMENTED. PATIENT AND DAUGHTER DENY QUESTIONS. PATIENT REFUSES PNEUMATICS. STATES THEY MAKE HER SO NERVOUS SHE CAN'T HARDLY STAND IT. FALL AND ALLERGY BRACELETS ARE ON. CALL LIGHT IN REACH. DENIES NEEDS AT THIS TIME. REPORT IS GIVEN TO LEONILA RAMOS.
[2016-09-01 21:18] LABS: BASOPHIL # 0.1 K/uL (0.0-0.2); EOSINOPHIL # 0.3 K/uL (0.0-0.5); EOSINOPHIL % 4.2 %; HEMATOCRIT 36.4 % (30.0-46.0); HEMOGLOBIN 11.7 g/dL (10.0-15.0); IMMATURE GRANULOCYTE % 0.3 %; LYMPHOCYTE % 25.1 %; MCH 28.1 pg (27.0-34.0); MCHC 32.1 gm/dL (32.0-36.5); MCV 87.5 fl (83.0-98.0); MONOCYTE # 0.8 K/uL (0.0-1.0); MONOCYTE % 10.1 %; MPV 9.4 fl (9.4-12.4); NEUTROPHIL # (ANC) 4.7 K/uL (1.8-7.8); NEUTROPHIL % 59.3 %; NRBC % 0 /100WBC (0-0.00); PLATELET COUNT 263 K/uL (150-450); RBC 4.16 M/uL (3.00-5.00); RDW-CV 15.9 % (11.9-14.6); WBC 7.9 K/uL (4.0-11.0)
[2016-09-01 21:29] LABS: INR - (THERAPEUTIC) 1.26 (0.92-1.07); PROTIME 13.3 SECONDS (9.8-11.4); PTT 40 SECONDS (25-32)
[2016-09-01 21:34] LABS: ALBUMIN 3.5 gm/dL (3.5-5.0); ANION GAP 11.1 (10.0-19.0); CALCIUM 8.7 mg/dL (8.5-10.5); CREATININE 0.9 mg/dL (0.5-1.1); POTASSIUM 4.1 mMol/L (3.7-5.1); TOTAL BILIRUBIN 0.3 mg/dL (0.0-1.5); TOTAL PROTEIN 6.5 g/dL (6.0-8.4)
--- NOTE | 2016-09-02 04:10 | NUR ---
Significant Event: Patient is alert and oriented x 3. VSS on room air. HRs in the 60s-90s. In a.fib. SBPs in the 150s-170s. Afebrile. Up with 1 assist, walker, and gait belt. NIHSS of 1 for garbled/slurred speech. Equal strength throughout. Tingling to bilateral feet, patient states this is baseline. Voiding well. Left hand IV, saline locked. Tylenol given x 1 at 2157. Ativan given at that time as well. ACHS accuchecks. Patient is pleasant and cooperative with cares. Follow up: MRI/MRA this am. Neuro consult this am.
--- NOTE | 2016-09-02 16:00 | NUR ---
Introduced self and role of care management to patient. She lives alone in [place]. She uses a walker at home and has lifeline. She gets meals on wheels M- and a friend brings her a meal most Sundays. She has [facility] services through [facility]. She has a daughter in [place] and good neighbors and friends she says. She hopes to go home tomorrow and denies discharge needs at this time. Will follow.
--- NOTE | 2016-09-02 19:16 | NUR ---
Significant Event: Patient alert and oriented X 3. Room air. SBP 160's and 180's. HR 60's and 70's. Stroke scale 1 for slurring. MRI and MRA done today. Up with SBA, gait belt and walker. Pleasant and cooperative with cares. Follow up: Possible dismissal home tomorrow.
--- NOTE | 2016-09-03 04:24 | NUR ---
Significant Event: Patient is alert and oriented x 3. VSS on room air. HRs in the 60s-80s. Hypertensive. SBPs in the 160s-170s. Afebrile. Up with 1 assist, walker, and gaitbelt. NIHSS of 1 for garbled speech. Tingling to bilateral feet due to neuropathy. Equal strength throughout. On mechanical soft diet. Left hand IV, saline locked. Tylenol and Ativan given x 1 at 2227. Patient is pleasant and cooperative with cares. Follow up: Plan is to be discharged to home today
[2016-09-03] MEDS ORDERED: PRINIVIL (ZESTRI5 MG PO (09:18)
--- NOTE | 2016-09-03 10:25 | NUR ---
Significant Event: Patient alert and oriented. Up with standby assist. Discharge to home today and will continue on home health. Neuro checks are stable. Follow up:
== END 2016-09-03 12:10 | disposition disaster alternative care site (69) ==
LOC: GPCU 17:38
PROVIDERS: Internal Medicine; ADMIT Internal Medicine
DX: G45.9 Transient cerebral ischemic attack, unspecified (principal); I10 Essential (primary) hypertension; E11.9 Type 2 diabetes mellitus without complications; K21.9 Gastro-esophageal reflux disease without esophagitis; I25.10 Atherosclerotic heart disease of native coronary artery without angina pectoris; I48.2 Chronic atrial fibrillation; E78.5 Hyperlipidemia, unspecified; Z88.5 Allergy status to narcotic agent; Z87.891 Personal history of nicotine dependence; Z98.890 Other specified postprocedural states; Z79.01 Long term (current) use of anticoagulants; Z79.84 Long term (current) use of oral hypoglycemic drugs; Z79.899 Other long term (current) drug therapy
CPT/HCPCS: G0378; G8978; G8979; G8980; G8987; G8988; G8989; G8996; G8997; G8998